=== PATIENT | male | born 1945 | race Caucasian/White ===

== ENCOUNTER 2017-07-30 17:36 | Inpatient (IN) | payer MEDICARE, OTHER ==
[~2017-07-30] VITALS: Ht 175.3 cm; Wt 80.4 kg
[2017-07-30] MEDS ORDERED: GLUCOPHAGE1000 MG PO (18:10)
[2017-07-30] MEDS ORDERED: COREG 25MG25 MG/TAB PO (18:10)
[2017-07-30] MEDS ORDERED: LIPITOR 40MG TA40 MG PO (18:13)
[2017-07-30] MEDS ORDERED: BACTRIM DS 8001 TAB PO (18:13)
[2017-07-30] MEDS ORDERED: PLAVIX 75MG TAB75 MG PO (18:14)
[2017-07-30] MEDS ORDERED: ASPIRIN 81M81 MG/TA2 PO (18:14)
[2017-07-30] MEDS ORDERED: MAG-OX 400400 MG/TAB PO (18:15)
[2017-07-30] MEDS ORDERED: CITRACAL + D CA1 TAB PO (18:16)
[2017-07-30 19:22] VITALS: BP 117/80; PULSE 73; TEMP 97.9
[2017-07-30 20:23] LABS: ARTERIAL BLD GAS O2 SATURATION 97.4 % (92-100); ARTERIAL BLD GAS TCO2 CT 19.5; ARTERIAL BLOOD GAS HCO3 18.6 meq/L (22-26); ARTERIAL BLOOD GAS PHT 7.46 C (7.35-7.45); ARTERIAL BLOOD GAS PO2 103.3 mmHg (80-100); ARTERIAL BLOOD GAS PO2T 100.9 (80-100); ARTERIAL BLOOD GAS pH 7.46 (7.35-7.45); OXYHEMOGLOBIN 96.5 %
[2017-07-30 20:24] LABS: ALLEN TEST YES; ALLENS TEST RESULT PASS; ATS? YES
[2017-07-30 23:58] VITALS: BP 123/63; PULSE 99; TEMP 99.2
[2017-07-31] VITALS (12 sets, daily range): BP systolic 93–141; BP diastolic 50–76; PULSE 78–95; TEMP 97.9–98.3
[2017-07-31 04:42] LABS: HEMATOCRIT 29.9 % (42.0-52.0); HEMOGLOBIN 10.3 g/dl (13.5-18.0)
[2017-07-31 04:46] LABS: CALCIUM 9.1 mg/dL (8.4-10.2); CREATININE, serum 1.66 mg/dL (0.66-1.25); POTASSIUM 4.9 mmol/L (3.4-5.0)
[2017-07-31 05:17] LABS: THYROID STIMULATING HORMONE 1.19 uIU/mL (0.465-4.680)
[2017-08-01] VITALS (8 sets, daily range): BP systolic 95–122; BP diastolic 55–83; PULSE 77–86; TEMP 97.7–98.3
[2017-08-01 07:37] LABS: CALCIUM 8.3 mg/dL (8.4-10.2); CREATININE, serum 1.38 mg/dL (0.66-1.25); POTASSIUM 4.9 mmol/L (3.4-5.0)
[2017-08-02] VITALS (420 sets, daily range): BP systolic 69–149; BP diastolic 46–89; PULSE 70–81; TEMP 97.3–98.1; O2SAT 76–99
[2017-08-02 06:46] LABS: CALCIUM 8.2 mg/dL (8.4-10.2); CREATININE, serum 1.25 mg/dL (0.66-1.25); POTASSIUM 4.5 mmol/L (3.4-5.0)
[2017-08-02] MEDS ORDERED: ZESTRIL40 MG PO (08:55)
[2017-08-02] MEDS ORDERED: FLONASE NASAL S16 GM NS (10:16)
[2017-08-02 11:00] LABS: ALBUMIN FRACTION 3.7 g/dL (2.6-4.5); ALBUMIN PERCENTAGE 58.8 % (48.7-61.8); ALPHA 1 FRACTION 0.3 g/dL (0.3-0.5); ALPHA 1 PERCENTAGE 4.1 % (3.4-8.3); ALPHA 2 FRACTION 0.7 g/dL (0.6-1.2); ALPHA 2 PERCENTAGE 10.7 % (8.4-17.5); BETA 1 FRACTION 0.4 g/dL (0.4-0.6); BETA 1 PERCENTAGE 6.9 % (5.4-8.9); BETA 2 FRACTION 0.4 g/dL (0.2-0.5); BETA 2 PERCENTAGE 6.9 % (3.8-7.7); GAMMA FRACTION 0.8 g/dL (0.4-1.7); GAMMA PERCENTAGE 12.6 % (8.1-23.0); SERUM PROTEIN TOTAL 6.2 g/dL (6.0-7.6)
[2017-08-02 12:35] LABS: HEMATOCRIT 28.6 % (42.0-52.0); HEMOGLOBIN 9.8 g/dl (13.5-18.0)
[2017-08-03] VITALS (390 sets, daily range): BP systolic 108–164; BP diastolic 68–85; PULSE 70–87; TEMP 97.6–98.3; O2SAT 88–98
[2017-08-03 06:13] LABS: BASO # 0.1 (0.0-0.2); BASO % 0.6 % (0.0-2.0); EOS # 0.5 (0.0-0.7); EOS % 4.9 % (0-4.0); GRAN # 7.3 (1.4-6.5); GRAN % 74.4 % (42.2-75.2); LYMPH # 1.4 (1.2-3.4); LYMPH % 14.3 % (20.0-51.0); MEAN CELL VOLUME 95 fl (80.0-100.0); MEAN CORPUSCULAR HGB CONC 34 g/dl (33.0-37.0); MEAN PLATELET VOLUME 10.7 fl (7.4-10.4); MONO # 0.5 (0.1-0.6); MONO % 5.5 % (1.7-9.3); PLATELET COUNT 167 K/mm3 (130-400); RED BLOOD COUNT 2.97 M/mm3 (4.20-5.60); WHITE BLOOD COUNT 9.8 K/mm3 (4.8-10.8)
[2017-08-03 06:19] LABS: CALCIUM 8.1 mg/dL (8.4-10.2); CREATININE, serum 1.08 mg/dL (0.66-1.25)
[2017-08-03 06:23] LABS: HEMATOCRIT 28.3 % (42.0-52.0); HEMOGLOBIN 9.7 g/dl (13.5-18.0); MEAN CORPUSCULAR HEMOGLOBIN 33 pg (27.0-31.0)
[2017-08-04] VITALS (7 sets, daily range): BP systolic 120–170; BP diastolic 71–97; PULSE 74–94; TEMP 97.5–98.4
[2017-08-04 07:04] LABS: INR 1.2 (0.8-3.0); PROTHROMBIN TIME 13.4 SECONDS (9.7-12.8)
[2017-08-04 07:10] LABS: CALCIUM 8.5 mg/dL (8.4-10.2); CREATININE, serum 1.05 mg/dL (0.66-1.25); POTASSIUM 3.9 mmol/L (3.4-5.0)
[2017-08-04 12:20] LABS: HEMATOCRIT 29.7 % (42.0-52.0); HEMOGLOBIN 10.1 g/dl (13.5-18.0)
[2017-08-05 03:23] VITALS: BP 157/93; PULSE 77; TEMP 98.6
[2017-08-05 07:03] LABS: CALCIUM 8.2 mg/dL (8.4-10.2); CREATININE, serum 1.04 mg/dL (0.66-1.25); POTASSIUM 3.7 mmol/L (3.4-5.0)
[2017-08-05 08:35] VITALS: BP 149/85; PULSE 65; TEMP 97.6
[2017-08-05 11:24] VITALS: BP 142/82; PULSE 81; TEMP 97.3
[2017-08-05 16:37] VITALS: BP 122/65; PULSE 82; TEMP 97.9
[2017-08-05 20:12] VITALS: BP 121/70; PULSE 78; TEMP 97.6
[2017-08-06 00:16] VITALS: BP 116/70; PULSE 90; TEMP 97.6
[2017-08-06 05:09] VITALS: BP 133/74; PULSE 78; TEMP 98
[2017-08-06 06:41] LABS: CALCIUM 8.3 mg/dL (8.4-10.2); CREATININE, serum 1.13 mg/dL (0.66-1.25); POTASSIUM 3.8 mmol/L (3.4-5.0)
[2017-08-06 07:30] VITALS: BP 140/85; PULSE 78; TEMP 97.9
[2017-08-06] MEDS ORDERED: NITRO-DUR0.4 MG/PAT TD (09:13)
[2017-08-06] MEDS ORDERED: PROTONIX I40 MG/VIAL PO (09:14)
[2017-08-06] MEDS ORDERED: ASPIRIN E.C. 8181 MG PO (09:16)
[2017-08-06 12:25] VITALS: BP 115/66; PULSE 81; TEMP 98.3
[2017-08-06] MEDS ORDERED: PROTONIX 40MG T40 MG PO (13:13)
== END 2017-08-06 15:20 | disposition home or self-care (01) | DRG 380 ==
LOC: ICU 17:36 → MEDICAL 17:36 → ICU 18:15 → MEDICAL 18:16 → ICU 08-02 12:39 → MEDICAL 08-03 09:30 → ICU 08-03 09:30 → MEDICAL 08-03 10:00 → ICU 08-03 10:00 → MEDICAL 08-03 10:00
PROVIDERS: Internal Medicine Gastroenterology; Internal Medicine Interventional Cardiology; Nurse Practitioner Family
PROC: 0DJ08ZZ Inspection of Upper Intestinal Tract, Via Natural or Artificial Opening Endoscopic (ICD-10-PCS; 2017-07-31)
PROC: 0W3P8ZZ Control Bleeding in Gastrointestinal Tract, Via Natural or Artificial Opening Endoscopic (ICD-10-PCS; 2017-08-02)
PROC: 0DB38ZX Excision of Lower Esophagus, Via Natural or Artificial Opening Endoscopic, Diagnostic (ICD-10-PCS; principal; 2017-08-02 17:15)
DX: K22.11 Ulcer of esophagus with bleeding (principal); R57.8 Other shock; E87.1 Hypo-osmolality and hyponatremia; J98.11 Atelectasis; N17.9 Acute kidney failure, unspecified; I25.10 Atherosclerotic heart disease of native coronary artery without angina pectoris; Z95.5 Presence of coronary angioplasty implant and graft; I10 Essential (primary) hypertension; E86.0 Dehydration; J44.9 Chronic obstructive pulmonary disease, unspecified; E87.5 Hyperkalemia; K26.7 Chronic duodenal ulcer without hemorrhage or perforation; K25.7 Chronic gastric ulcer without hemorrhage or perforation; D50.0 Iron deficiency anemia secondary to blood loss (chronic)
CPT/HCPCS: A9284; A9585; C1751; C1894; C9113; J0171; J1644; J1650; J2250; J2405; J2704; J3010; J7030; P9016

== ENCOUNTER → 2017-07-30 | Outpatient (CLI) | payer MEDICARE, OTHER ==
[~2017-07-30] MED LIST: ASPIRIN 81M81 MG/TA2 PO; BACTRIM DS 8001 TAB PO; CITRACAL + D CA1 TAB PO; COREG 25MG25 MG/TAB PO; FLONASE NASAL S16 GM NS; GLUCOPHAGE1000 MG PO; LIPITOR 40MG TA40 MG PO; MAG-OX 400400 MG/TAB PO; PLAVIX 75MG TAB75 MG PO; ZESTRIL40 MG PO
[2017-07-30 15:07] LABS: HEMATOCRIT 34.2 % (42.0-52.0); HEMOGLOBIN 11.9 g/dl (13.5-18.0); MEAN CELL VOLUME 95 fl (80.0-100.0); MEAN CORPUSCULAR HEMOGLOBIN 33 pg (27.0-31.0); MEAN CORPUSCULAR HGB CONC 35 g/dl (33.0-37.0); MEAN PLATELET VOLUME 10.9 fl (7.4-10.4); PLATELET COUNT 216 K/mm3 (130-400); RED BLOOD COUNT 3.61 M/mm3 (4.20-5.60); WHITE BLOOD COUNT 9.2 K/mm3 (4.8-10.8)
[2017-07-30 15:16] LABS: ADJUSTED CALCIUM 9.4 mg/dL (8.4-10.2); ALANINE AMINOTRANSFERASE 31 U/L (21-72); ALBUMIN 3.8 gm/dL (3.5-5.0); ALKALINE PHOSPHATASE 58 U/L (50-136); ANION GAP 10 mmol/L (7-16); BILIRUBIN,TOTAL 0.7 mg/dL (0.0-1.0); BLOOD UREA NITROGEN 45 mg/dL (9-20); CALCIUM 9.2 mg/dL (8.4-10.2); CARBON DIOXIDE 21 mmol/L (22-30); CHLORIDE 99 mmol/L (98-107); GLUCOSE 203 mg/dL (74-106); POTASSIUM 5.5 mmol/L (3.4-5.0); SODIUM 129 mmol/L (137-145); TOTAL PROTEIN 6.5 gm/dL (6.4-8.2)
[2017-07-30 15:24] LABS: B-TYPE NATRIURETIC PEPTIDE 159 pg/mL (0-125)
[2017-07-30 15:47] LABS: TROPONIN-I < 0.012 ng/mL (0.000-0.034)
== END ==
LOC: COL.LAB 13:23
PROVIDERS: Physician Assistant
DX: R06.02 Shortness of breath (principal)

== ENCOUNTER → 2017-07-30 | Outpatient (CLI) | payer MEDICARE, OTHER | LOC: MC.RAD 13:54 | DX: R06.02 Shortness of breath (principal); Z95.9 Presence of cardiac and vascular implant and graft, unspecified ==